=== PATIENT | female | born 1965 | race Caucasian/White ===

== ENCOUNTER 2016-05-11 09:29 | Emergency (ER) | payer MEDICARE ==
--- NOTE | 2016-05-11 11:14 | RAD ---
EXAMINATION: ANKLE LIMITED LEFT 1-2 VIEWS CLINICAL INDICATION: Left ankle pain. Initial encounter. COMPARISON: None FINDINGS: There is an oblique fracture of the distal diaphysis of the tibia. Oblique fracture of the distal diaphysis of the fibula is also noted. There is minimal displacement of the fracture site. Moderate osteopenia is noted. The tibiotalar and visualized subtalar joint space relationships are maintained. No soft tissue abnormality is identified. IMPRESSION: Oblique fractures distal diaphysis left tibia and fibula. There is severe osteopenia as well.
--- NOTE | 2016-05-11 11:15 | RAD ---
EXAMINATION:LOWER LEG LEFT Two- Views CLINICAL INDICATION:Leg pain COMPARISON:None FINDINGS: There are oblique fractures involving the distal diaphysis of the tibia and fibula. There is slight diastases at the fracture sites. There is minimal lateral apex angulation. Severe osteopenia is noted. The joint space relationships of the knee and ankle are maintained No radio opaque foreign bodies identified. IMPRESSION: Oblique fractures distal diaphysis left tibia and fibula.
[2016-05-11] MEDS ORDERED: HYDROCODONE/ACETAMINOPHEN 5/325MG TABLET ONE (11:39)
[2016-05-11] MEDS ORDERED: IBUPROFEN 600 MG TABLET ONE (11:39)
== END 2016-05-11 12:18 | disposition home or self-care (01) ==
LOC: ED 09:29
DX: S82.402A Unspecified fracture of shaft of left fibula, initial encounter for closed fracture (principal); S82.202A Unspecified fracture of shaft of left tibia, initial encounter for closed fracture; W18.12XA Fall from or off toilet with subsequent striking against object, initial encounter; Y93.E8 Activity, other personal hygiene; Y92.002 Bathroom of unspecified non-institutional (private) residence as the place of occurrence of the external cause
CPT/HCPCS: 73600; 73590; 99283; 29515; 99284; A9270 ×2

== ENCOUNTER 2016-05-19 11:08 | Inpatient (IN) | payer MEDICARE ==
[2016-05-19] MEDS ORDERED: LACTATED RINGERS 1,000 ML ONE ×2 (14:03→16:46)
[2016-05-19] MEDS ORDERED: IV START KIT ONE ×2 (14:04→19:35)
[2016-05-19] MEDS ORDERED: CEFAZOLIN SODIUM 2 GRAM PREMIX 100 ML IV PRN (14:15)
[2016-05-19] MEDS ORDERED: CEFAZOLIN SODIUM 2 GRAM PREMIX 100 ML IV ONE (15:41)
[2016-05-19] MEDS ORDERED: MIDAZOLAM HCL 1 MG/ML 2ML VIAL ONE (15:55)
[2016-05-19] MEDS ORDERED: FENTANYL 250 MCG/5 ML AMP ONE (15:55)
[2016-05-19] MEDS ORDERED: PROPOFOL 20 ML IV ONE (16:36)
[2016-05-19] MEDS ORDERED: ONDANSETRON 4 MG/2ML 2 ML VIAL ONE (17:16)
[2016-05-19] MEDS ORDERED: DEXAMETHASONE SOD PHOS 4 MG/1 ML VIAL ONE (17:16)
[2016-05-19] MEDS ORDERED: EPHEDRINE SULFATE UD SYR 25 MG 25 MG/5 ML SYRINGE IV ONE (17:22)
[2016-05-19] MEDS ORDERED: HYDROMORPHONE HCL 2 MG/ML SYRINGE ONE (17:51)
[2016-05-19] MEDS ORDERED: BUPIVACAINE 0.5% W/EPI SDV 30 ML VIAL ONE (17:52)
[2016-05-19] MEDS ORDERED: ONDANSETRON 4 MG/2ML 2 ML VIAL IV PRN ×2 (17:55→20:31)
[2016-05-19] MEDS ORDERED: FENTANYL 100 MCG/2 ML VIAL IV PRN (17:55)
[2016-05-19] MEDS ORDERED: ATROPINE SULFATE 0.4 MG/1 ML VIAL IV PRN (17:55)
[2016-05-19] MEDS ORDERED: PROMETHAZINE HCL 25 MG/ML VIAL IM PRN (17:55)
[2016-05-19] MEDS ORDERED: NALOXONE HCL 0.4 MG/ML VIAL IV PRN (17:55)
[2016-05-19] MEDS ORDERED: LACTATED RINGERS 1,000 ML IV SCH (18:00)
--- NOTE | 2016-05-19 19:13 | RAD ---
INTRAOPERATIVE FLUOROSCOPY HISTORY: Open reduction and internal fixation for left tibial fracture. TECHNIQUE: 55.9 seconds of fluoroscopy time was provided for Dr. Kline for purposes of procedural guidance. 6 fluoroscopic spot images were submitted for review. FINDINGS: Images depict intramedullary jordan and locking screw fixation for a spiral left tibial diaphyseal fracture. A minimally displaced fibular diaphyseal fractures also seen. IMPRESSION: Fluoroscopy provided for procedural guidance, open reduction and internal fixation for tibial fracture.
[2016-05-19] MEDS ORDERED: FENTANYL 100 MCG/2 ML VIAL ONE (19:14)
[2016-05-19] MEDS ORDERED: HYDROMORPHONE HCL 1 MG/ML SYRINGE ONE ×2 (19:28→19:48)
[2016-05-19] MEDS: HYDROMORPHONE HCL 1 MG/ML SYRINGE IV PRN ×2 (20:08→20:09)
[2016-05-19] MEDS ORDERED: BLISTEX LIPSTICK 1 EACH TP PRN (20:31)
[2016-05-19] MEDS ORDERED: MENTHOL/CETYLPYRD 1 EACH LOZENGE PO PRN (20:31)
[2016-05-19] MEDS ORDERED: BISACODYL 10 MG SUP PR PRN (20:31)
[2016-05-19] MEDS ORDERED: MAGNESIUM HYDROXIDE 30 ML UDCUP PO PRN (20:31)
[2016-05-19] MEDS ORDERED: PUMP TUBING ONE (20:39)
[2016-05-19] MEDS: D5 1/2NS with 20 mEq KCL 1,000 ML IV SCH (20:45)
[2016-05-19] MEDS: DOCUSATE SODIUM 100 MG CAPSULE PO SCH (20:46)
[2016-05-19] MEDS: HYDROMORPHONE HCL 2 MG/ML SYRINGE IV PRN (20:48)
[2016-05-19 21:43] VITALS: BMI 22.4
[2016-05-19] MEDS: OXYCODONE/ACETAMINOPHEN 5/325 MG TABLET PO PRN (21:54)
[2016-05-19] MEDS: TEMAZEPAM 15 MG CAPSULE PO PRN (21:55)
[2016-05-20] MEDS: HYDROMORPHONE HCL 2 MG/ML SYRINGE IV PRN (00:25)
[2016-05-20] MEDS: OXYCODONE/ACETAMINOPHEN 5/325 MG TABLET PO PRN ×6 (02:13→21:35)
[2016-05-20] MEDS: HYDROMORPHONE HCL 1 MG/ML SYRINGE IV PRN ×3 (03:47→10:03)
[2016-05-20] MEDS: D5 1/2NS with 20 mEq KCL 1,000 ML IV SCH ×2 (05:53→17:53)
[2016-05-20 06:51] LABS: HEMATOCRIT 30.2 % (37.0-47.0); HEMOGLOBIN 10.1 gm/l (12.0-16.0); MEAN CELL VOLUME 102.7 fl (81.0-99.0); MEAN CORPUSCULAR HEMOGLOBIN 34.4 pg (27.0-31.0); MEAN CORPUSCULAR HGB CONC 33.4 g/dl (33.0-37.0); RED CELL DISTRIBUTION WIDTH 11.9 % (11.5-14.5)
[2016-05-20 07:10] LABS: CALCIUM 8.5 mg/dL (8.6-10.3)
[2016-05-20] MEDS: DOCUSATE SODIUM 100 MG CAPSULE PO SCH ×2 (08:32→21:33)
[2016-05-20] MEDS: ASPIRIN (ENTERIC COATED) 325 MG TABLET.EC PO SCH (08:32)
[2016-05-20] MEDS: CELECOXIB 200 MG CAPSULE PO SCH (08:32)
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
[2016-05-20] MEDS ORDERED: DIPHENHYDRAMINE HCL 25 MG CAPSULE PO PRN ×2 (19:37→19:42)
[2016-05-20] MEDS ORDERED: DIPHENHYDRAMINE HCL 25 MG CAPSULE ONE (19:40)
[2016-05-20] MEDS: TEMAZEPAM 15 MG CAPSULE PO PRN (19:46)
[2016-05-21] MEDS: OXYCODONE/ACETAMINOPHEN 5/325 MG TABLET PO PRN ×6 (01:29→23:16)
[2016-05-21] MEDS: D5 1/2NS with 20 mEq KCL 1,000 ML IV SCH ×2 (04:42→13:40)
--- NOTE | 2016-05-21 09:02 | PDOC43 ---
- Subjective Findings: Pt seen this morning. States she is painful mostly distal around the ankle. Despite her pain complaints she states she slept through the night. Still remains anxious about her MS sx. Subjective: Reports Pain Tolerable, Denies Chest Pain, Denies Shortness of Breath, Denies Nausea, Denies Vomiting, Denies Fever - Objective Vital Signs Temperature 98.8 F 05/21/16 07:00 Pulse Rate 91 05/21/16 07:00 Respiratory Rate 17 05/21/16 07:00 Blood Pressure 120/86 05/21/16 07:00 O2 Saturation by Pulse Oximetry 92 05/21/16 07:00 Oxygen Delivery Method Room Air Oxygen Flow Rate 0 Laboratory 05/20/16 06:10 05/20/16 06:10 Active Medication Orders Category Date Time Status Aspirin (Enteric Coated) [Ecotrin] Med 05/20/16 09:00 Active 325 mg PO DAILY Bisacodyl [Dulcolax] Med 05/19/16 20:31 Active 10 mg NE DAILY PRN Celecoxib [Celebrex] Med 05/20/16 09:00 Active 200 mg PO DAILY D5 1/2NS with 20 mEq KCL [D51/2NS with 20 mEq KCL] 1, Med 05/19/16 20:31 Active 000 ml IV 100 mls/hr Diphenhydramine HCl [Benadryl] Med 05/21/16 05:39 Active 25 mg PO Q6H PRN Docusate Sodium [Colace] Med 05/19/16 21:00 Active 100 mg PO BID Hydromorphone HCl [Dilaudid] Med 05/19/16 20:31 Active 1 - 2 mg IV Q4H PRN Hydromorphone HCl [Dilaudid] Med 05/19/16 20:36 Active 1 - 2 mg IV Q4H PRN Lip [place] [Blistex] Med 05/19/16 20:31 Active 1 each TP PRN PRN Magnesium Hydroxide [Milk of Magnesia] Med 05/19/16 20:31 Active 30 ml PO DAILY PRN Menthol/Cetylpyridinium [Cepacol] Med 05/19/16 20:31 Active 1 each PO PRN PRN Ondansetron 4 mg/2ml Vial [Zofran] Med 05/19/16 20:31 Active 4 mg IV Q6H PRN Oxycodone HCl/Acetaminophen [Percocet 5/325] Med 05/19/16 20:31 Active 1 - 2 tab PO Q4H PRN Sodium Chloride 0.9% Flush [Normal Saline 10ml Flush] Med 05/19/16 20:31 Active 10 - 50 ml IV PRN PRN Sodium Chloride 0.9% Flush [Normal Saline 10ml Flush] Med 05/20/16 01:00 Active 10 ml IV Q8HR Temazepam [Restoril] Med 05/19/16 20:31 Active 15 mg PO BEDTIME PRN Intake and Output 05/19/16 05/20/16 05/21/16 23:59 23:59 23:59 Intake Total 3781 510 Output Total 1590 1250 Balance 2191 -740 General: Afebrile HEENT: Atraumatic Lungs: Normal Air Movement Cardiovascular: Regular Rate and Rhythm, Other (Tachycardic secondary to anxiety and pain.) Abdomen: Non-Distended - Left Lower Extremity Incision: Shadow Drainage (Dressing removed. Replaced with the help of RN), Ecchymosis, Well Approximated, No Erythema Gross Sensation to Light Touch: Present: Deep Peroneal Nerve, Superficial Peroneal Nerve Motion: Calf and LE compartments are soft Mild tenderness around fracture site No active rom bilateral ankles secondary to MS - Problems (1) Status post open reduction with internal fixation of fracture Status: AcuteAssessment/Plan: Pod#2 1. Physical Therapy: Bilateral AFO. NWB Left LE. Mobilize with PT 2. Pain Control:Per 's orders 3. DVT Prophylaxis: ASA and foot pumps 4. Disposition:Doing fair. Pain and MS sx will be an issue during her stay. Plan for possible d/c tomorrow if meets criteria. 5. Medical Issues:MS will limit her rehab potential. Tachycardic secondary to anxiety over MS sx and pain.
[2016-05-21] MEDS: DOCUSATE SODIUM 100 MG CAPSULE PO SCH ×2 (09:04→21:20)
[2016-05-21] MEDS: ASPIRIN (ENTERIC COATED) 325 MG TABLET.EC PO SCH (09:05)
[2016-05-21] MEDS: CELECOXIB 200 MG CAPSULE PO SCH (09:05)
[2016-05-21] MEDS: DIPHENHYDRAMINE HCL 25 MG CAPSULE PO PRN ×2 (11:05→19:44)
--- NOTE | 2016-05-21 14:00 | OP ---
AUDRA SANTANA [id number] : 1965 DATE OF SURGERY: May 19, 2016 PREOPERATIVE DIAGNOSIS: Left tibia/fibula fracture POSTOPERATIVE DIAGNOSIS: SAME PROCEDURE: Reduction with IM Nailing, Left Tibia Fracture SURGEON: Marcus Kline M.D. DISTRICT SUPERVISOR: Donny (BLANCA) IMPLANT: Tri-Gen size 10 x 32 tibial meta-nail locked with 3 distal interlocks, 2 proximal interlocks. ESTIMATED BLOOD LOSS: 25cc ANESTHESIA: General per Bahrke TOURNIQUET TIME: 75 minutes FLUIDS: IV fluid placed per anesthesia. URINE OUTPUT: Per anesthesia DRAINS: None COMPLICATIONS: None INDICATIONS: Patient is a 51-year-old female with advanced MS who slipped on a rug on 05/04/16. She had significant persisting discomfort, presented to the ER on 05/11/16 with evidence of a spiral, displaced tib/fib fracture. She was placed in a short leg splint and we saw her last Thursday for evaluation with recommendation at that point to consider reduction and IM fixation. PAR conference was held, questions and concerns addressed and informed consent obtained. For additional details please refer to dictated preoperative H&P. PROCEDURAL DESCRIPTION: Patient was taken to the OR. General anesthesia was induced and a laryngeal masked airway was placed. Tourniquet was applied to the proximal thigh and the lower extremity was prepped and draped out in the usual sterile fashion. She is extremely thin with externally rotated lower leg bilaterally. Biplanar fluoroscopic imaging confirmed the spiral fracture. I felt this was a good opportunity to reduce this closed. Preoperative IV antibiotics were given empirically. After sterile prep and drape the leg was elevated and the tourniquet inflated. We used an extended approach with suprapatellar access. Incision was made from the superior pole of the patella distally approximately 4cm. We dissected through subcutaneous tissue. Care was taken given the very thin nature of her skin. We identified the medial retinaculum and distal quadriceps tendon and made an arthrotomy and carried this slightly into the distal quad leaving a medial cuff. This allowed access to the joint. Placed the TriGen obturator guide. I used Biplanar fluoroscopic imaging to establish starting point medial to the lateral tibial spine. I passed a 3.2 guide wire. Once confirming position we over-reamed this with a 12.5 reamer proximally. We then advanced the bald tipped guide jordan with a slight bend at the end. This was passed across the fracture and placed center-center on AP and lateral of fluoroscopic images. Once satisfied with position we sounded this with a 10mm flexible reamer. In the isthmus it was slightly tight and we therefore reamed up to an 11. This was measured and we elected a 32, which would allow counter sinking proximally and avoid going too long. The nail was assembled on the back table and then advanced. Biplanar fluoroscopic imaging was utilized to evaluate this during the advancement. Once we took this as far distal as possible near the physeal scar we turned our attention to interlock, interlocking this distally. I did use the SureShot device and placed 2 medial to lateral screws placed percutaneously; I had one anterior to posterior, also placed percutaneously although slightly longer incision made to assure that the anterior tibial tendon was protected. Her bone was extremely osteoporotic with essentially no purchase. Once we were satisfied with our distal placement we placed 2 oblique proximal interlocks through small percutaneous incisions. Final Biplanar fluoroscopic imaging was obtained. We then irrigated and closed the percutaneous screw sites in a single layer with interrupted 4-0 nylon. The medial retinaculum and arthrotomy were re-approximated with interrupted #1 Vicryl, subcutaneous tissue with interrupted 2-0 Vicryl and the skin with interrupted nylon. A sterile, bulky, soft dressing was applied. The tourniquet had been released just at the initiation of closure. I did inject the knee with 20cc of 0.50% Marcaine with epinephrine. The patient was then awakened, extubated, transferred to her hospital bed and sent to post anesthesia recovery in stable condition. She tolerated the procedure well. Sponge, instrument and needle counts were correct. DIONTE/mrw CC: Elly Hester MD
[2016-05-21] MEDS: TEMAZEPAM 15 MG CAPSULE PO PRN (23:15)
[2016-05-22] MEDS: D5 1/2NS with 20 mEq KCL 1,000 ML IV SCH ×2 (00:31→09:15)
[2016-05-22] MEDS: OXYCODONE/ACETAMINOPHEN 5/325 MG TABLET PO PRN ×2 (07:55→11:06)
[2016-05-22 08:10] VITALS: BP 104/72
[2016-05-22] MEDS: CELECOXIB 200 MG CAPSULE PO SCH (09:14)
[2016-05-22] MEDS: DOCUSATE SODIUM 100 MG CAPSULE PO SCH ×2 (09:14→09:16)
[2016-05-22] MEDS: ASPIRIN (ENTERIC COATED) 325 MG TABLET.EC PO SCH (09:14)
--- NOTE | 2016-05-22 10:05 | PDOC43 ---
- Subjective Findings: Ortho POD 3 ORIF L Tibia fx Patient awake, A and O times 4 this am presently working with PT/OT on transfers. is present. Patient c/o moderate knee, leg pain but is well controlled on orals. Denies CP/SOB/NV. Taking a regular diet and positive flatus. No active transfers with therapy yet but is today's goal. feels they are reasonably well prepared at home. Subjective: Denies Chest Pain, Denies Shortness of Breath, Denies Nausea, Denies Vomiting, Denies Fever - Objective Vital Signs Temperature 99.2 F 05/22/16 07:00 Pulse Rate 95 05/22/16 07:00 Respiratory Rate 20 05/22/16 07:59 Blood Pressure 104/72 05/22/16 07:00 O2 Saturation by Pulse Oximetry 96 05/22/16 07:00 Oxygen Delivery Method Room Air Oxygen Flow Rate 0 Laboratory 05/20/16 06:10 05/20/16 06:10 Active Medication Orders Category Date Time Status Aspirin (Enteric Coated) [Ecotrin] Med 05/20/16 09:00 Active 325 mg PO DAILY Bisacodyl [Dulcolax] Med 05/19/16 20:31 Active 10 mg UT DAILY PRN Celecoxib [Celebrex] Med 05/20/16 09:00 Active 200 mg PO DAILY D5 1/2NS with 20 mEq KCL [D51/2NS with 20 mEq KCL] 1, Med 05/19/16 20:31 Active 000 ml IV 100 mls/hr Diphenhydramine HCl [Benadryl] Med 05/21/16 05:39 Active 25 mg PO Q6H PRN Docusate Sodium [Colace] Med 05/19/16 21:00 Active 100 mg PO BID Hydromorphone HCl [Dilaudid] Med 05/19/16 20:31 Active 1 - 2 mg IV Q4H PRN Hydromorphone HCl [Dilaudid] Med 05/19/16 20:36 Active 1 - 2 mg IV Q4H PRN Lip [place] [Blistex] Med 05/19/16 20:31 Active 1 each TP PRN PRN Magnesium Hydroxide [Milk of Magnesia] Med 05/19/16 20:31 Active 30 ml PO DAILY PRN Menthol/Cetylpyridinium [Cepacol] Med 05/19/16 20:31 Active 1 each PO PRN PRN Ondansetron 4 mg/2ml Vial [Zofran] Med 05/19/16 20:31 Active 4 mg IV Q6H PRN Oxycodone HCl/Acetaminophen [Percocet 5/325] Med 05/19/16 20:31 Active 1 - 2 tab PO Q4H PRN Sodium Chloride 0.9% Flush [Normal Saline 10ml Flush] Med 05/19/16 20:31 Active 10 - 50 ml IV PRN PRN Sodium Chloride 0.9% Flush [Normal Saline 10ml Flush] Med 05/20/16 01:00 Active 10 ml IV Q8HR Temazepam [Restoril] Med 05/19/16 20:31 Active 15 mg PO BEDTIME PRN Intake and Output 05/20/16 05/21/16 05/22/16 23:59 23:59 23:59 Intake Total 3781 510 810 Output Total 1590 1350 75 Balance 2191 -840 735 Neurological: No Normal Gait (NWB L LE post ORIF L Tib) Peripheral Pulses: Left Posterior Tibialis: 1+, Left Dorsalis Pedis: 1+ - Left Lower Extremity Incision: Dressing Clean/Dry/Intact (multiple sites, all well approx and benign in appearance without active drainage. Moderate swelling at ankle, foot.), No Dressing Saturated, No Shadow Drainage, No Drainage, No Erythema, No Rash Motor: Extensor Hallucis Longus: 3/5, Tibialis Anterior: 3/5, Gastrocnemius: 3/5 , Quadriceps: 3/5 Gross Sensation to Light Touch: Present: Deep Peroneal Nerve, Superficial Peroneal Nerve, Medial Plantar Nerve, Lateral Plantar Nerve, Sural Nerve, Saphenous Nerve Motion: PROM knee to 90, Ankle DF to neutral, PF to 30 - Problems (1) Status post open reduction with internal fixation of fracture Status: AcuteAssessment/Plan: ORTHO Pod#3 Left Tibia IM Nail 1. Continue: Physical Therapy: Bilateral AFO. NWB Left LE. Mobilize with PT 2. Continue:Pain Control:Per 's orders 3. Continue:DVT Prophylaxis: ASA and foot pumps 4. Disposition:Doing fair. Pain and MS sx continue to limit patient's ability. Minimal progress with PT/OT but goal is to achieve transfers today and d/c home if meets criteria. 5. Medical Issues:MS will limit her rehab potential.
--- NOTE | 2016-05-23 10:21 | DS ---
Erendira PAVON [id number] : 1965 DATE OF ADMISSION: May 19, 2016 DATE OF DISCHARGE: May 22, 2016 DISCHARGE DIAGNOSES: Left displaced tib-fib fracture. HOSPITAL PROCEDURES: Intramedullary rodding of left tibia. SURGEON: Marcus Kline M.D. BRIEF HISTORY: Patient is a 51-year-old female with multiple sclerosis was seen from evaluation from the emergency department having injured her left lower extremity on May 04, 2016. The patient tripped while at home falling sustaining displaced tibia fracture. She was placed in a splint and referred to orthopedics for definitive management. For the full history please see the chart note. BRIEF HOSPITAL COURSE: Patient was admitted on May 19, 2016. Dr. Marcus Kline performed a left intramedullary rodding for fixation of displaced tibia fracture. They were moved to the recovery room in stable condition. They were given antibiotic for empiric coverage. DVT prophylaxis consisted of aspirin, as well as SCDs. PT was initiated for transfers. The patient multiple sclerosis significantly inhibited her progression through physical therapy. Stress from the surgery and fracture. It was a more apparent that the patient's both upper and lower extremity symptoms of weakness were visible. Nonetheless the patient was able to progress and was discharged satisfactorily on postoperative day three. Discharge date was May 22, 2016. DISCHARGE INSTRUCTIONS: 1. Keep the wound site clean and dry, she was placed in a posterior splint until follow up in [address] Kline's office for wound check and dressing change. 2. The patient was given a bilateral AFO devices secondary to her multiple sclerosis and chronic foot drop. MEDICATIONS: 1. Pain management will be with hydrocodone 5/325 mg 1 to 2 by mouth every 4 to 6 hours. Celebrex 200 mg one by mouth every day. 2. Anti-coagulation will be with enteric-coated aspirin, 325 mg per day for six weeks. 3. Patient was also advised on utilization of a multi-vitamin with mineral daily as well as Vitamin C, 500mg daily for 1 month. 4. Patient encouraged to take an iron supplement in the form of ferrous sulfate, 325mg daily for 4 weeks. 5. Colace, 100mg, b.i.d. until regular bowel movement. FOLLOW-UP: The patient was asked to follow up in one week for a wound check and dressing change. Job [id number] CC: [place] Nabeel Hester M.D.
== END 2016-05-22 11:30 | disposition home or self-care (01) | DRG 494 ==
LOC: OR 13:54 → MS 20:41
PROVIDERS: ADMIT Orthopaedic Surgery; ATTEND Orthopaedic Surgery
PROC: 0QSH04Z Reposition Left Tibia with Internal Fixation Device, Open Approach (ICD-10-PCS; principal; 2016-05-19)
DX: S82.242A Displaced spiral fracture of shaft of left tibia, initial encounter for closed fracture (principal); W18.09XA Striking against other object with subsequent fall, initial encounter; Y92.019 Unspecified place in single-family (private) house as the place of occurrence of the external cause; Z87.891 Personal history of nicotine dependence